=== PATIENT | female | born 1965 | race Caucasian/White ===

== ENCOUNTER → 2017-11-23 | Outpatient (CLI) | payer BC | LOC: M.RAD 11-09 10:00 | DX: N63.10 Unspecified lump in the right breast, unspecified quadrant (principal); N63.20 Unspecified lump in the left breast, unspecified quadrant; N91.2 Amenorrhea, unspecified; R92.8 Other abnormal and inconclusive findings on diagnostic imaging of breast; Z78.0 Asymptomatic menopausal state ==

== ENCOUNTER → 2018-12-21 | Outpatient (CLI) | payer BC | LOC: M.RAD 11-23 11:00 | DX: Z12.31 Encounter for screening mammogram for malignant neoplasm of breast (principal) ==

== ENCOUNTER → 2020-01-03 | Outpatient (CLI) | payer OTHER | LOC: M.RAD 11:00 | DX: Z12.31 Encounter for screening mammogram for malignant neoplasm of breast (principal) ==

== ENCOUNTER → 2020-01-10 | Outpatient (CLI) | payer OTHER | LOC: M.ULTRA 11:03 | DX: R92.2 Inconclusive mammogram (principal) ==

== ENCOUNTER → 2021-01-15 | Outpatient (CLI) | payer OTHER | LOC: M.RAD 01-08 11:00 | PROVIDERS: ATTEND Obstetrics & Gynecology | DX: Z12.31 Encounter for screening mammogram for malignant neoplasm of breast (principal) ==

== ENCOUNTER → 2022-01-18 | Outpatient (CLI) | payer OTHER | LOC: M.RAD 10:15 | PROVIDERS: ATTEND Obstetrics & Gynecology | DX: Z12.31 Encounter for screening mammogram for malignant neoplasm of breast (principal) ==